=== PATIENT | male | born 1965 | race Caucasian/White ===

== ENCOUNTER 2024-10-18 23:45 | Emergency (ER) | payer BC, OTHER ==
[~2024-10-18] VITALS: Ht 167.6 cm; Wt 104.3 kg
[2024-10-18 23:46] VITALS: TEMP 98.7
[2024-10-19 00:43] LABS: APPEARANCE,URINE CLEAR (CLEAR); BILIRUBIN,URINE NEGATIVE (NEGATIVE); COLOR,URINE YELLOW (YELLOW); GLUCOSE, URINE (UA) NEGATIVE (NEGATIVE); KETONES,URINE NEGATIVE (NEGATIVE); LEUKOCYTE ESTERASE ,URINE NEGATIVE Leu/uL (NEGATIVE); NITRATE,URINE NEGATIVE (NEGATIVE); OCCULT BLOOD,URINE NEGATIVE (NEGATIVE); PH,URINE 5.5 (5.0-8.0); PROTEIN,URINE 20 mg/dL (NEGATIVE); UROBILINOGEN,URINE 0.2 mg/dL (0.2-1.0)
[2024-10-19 00:44] LABS: BASOPHILS # (AUTO) 0.01 K/uL (0.00-0.20); BASOPHILS % (AUTO) 0.2 % (0.0-5.0); EOSINOPHILS # (AUTO) 0.09 K/uL (0.00-0.70); EOSINOPHILS % (AUTO) 1.7 % (0.0-8.0); HEMATOCRIT 46.5 % (42-54); IMMATURE GRANULOCYTE ABSOLUTE 0.02 K/uL (0-1); LYMPHOCYTES % (AUTO) 18.8 % (21.0-51.0); MEAN CORPUSCULAR HEMOGLOBIN 34.2 pg (27.0-33.0); MEAN CORPUSCULAR HGB CONC 32.9 g/dL (32.0-36.0); MONOCYTES % (AUTO) 18.4 % (3.0-13.0); NEUTROPHILS # (AUTO) 3.3 K/uL (1.8-7.7); NEUTROPHILS % (AUTO) 60.5 % (40.0-77.0); PLATELET COUNT (AUTO) 128 K/uL (130-400); RED BLOOD CELL COUNT(AUTO) 4.47 MIL/uL (4.50-6.20); RED CELL DISTRIBUTION WIDTH 12.8 % (11.0-15.5); WHITE BLOOD COUNT (AUTO) 5.4 K/uL (4.8-10.8)
[2024-10-19 00:46] LABS: CREATININE 1.3 mg/dL (0.5-1.3); POTASSIUM 4.3 mmol/L (3.5-5.1)
[2024-10-19 00:48] LABS: ADD UA MICROSCOPIC YES
[2024-10-19 00:50] LABS: MUCUS,URINE RARE LPF (None Seen); RAPID GROUP A STREP negative (NEGATIVE); RBC,URINE 0-1 /HPF (0-1); SQUAMOUS EPITHELIAL CELL,UR RARE /HPF (0-2); WBC,URINE 0-1 /HPF (0-1)
[2024-10-19 00:55] LABS: SARS-CoV-2, RNA, NAAT NEGATIVE SARS CoV-2 (NEGATIVE)
[2024-10-19 01:00] LABS: INFLUENZA TYPE B Negative For Type B (NEGATIVE)
[2024-10-19 01:17] LABS: INFLUENZA TYPE A Positive For Type A (NEGATIVE)
--- NOTE | 2024-10-19 01:57 | ERN ---
ED Note History of Present Illness Stated Complaint: COUGH, CONGESTION, FEVER X 5 DAYS Chief Complaint: Cough Time Seen by MD: 23:59 Time Seen by Midlevel: 00:05 Dictation: 59-year-old male coming in complaining of one episode of low blood pressure, co ugh and congestion. Patient states this has been going on for five days was seen by PCP was placed on a Z-Elliott and prednisone daily. Patient states he has completed the Z-Elliott medication is still has a couple of the prednisone pending. Patient states he has been feeling better, states today is the 1st day that he does not have any fevers, and states his phlegm has gone from green to white. Denies having any chest pain, since it is comfort, short of breath. As per EMS in route his vital signs have been stable. Allergies: Uncoded Allergies: PCN (Allergy, 05/22/12) Home Meds Active Scripts Benzonatate (Tessalon Perles) 100 Mg Cap, 100 MG PO TID for cough for 7 Days, #21 CAP Prov:CUMMINGSJENNIFERESPERANZA WEBSITE PROGRAMMER 10/19/24 Oseltamivir Phosphate (Tamiflu) 75 Mg Cap, 75 MG PO BID for 5 Days, #10 CAP Prov:CUMMINGS,ESPERNAZA WEBSITE PROGRAMMER 10/19/24 Past Medical History Past Medical History: Asthma, MS Surgical History: CABG, Other Surgical History Other: L NEPHRECTOMY, MULTIPLE ABD HERNIA REPAIR Review of System Dictation Constitutional: Negative for fever,chills, and weight loss Eyes: Negative for injury, pain,redness, and discharge ENT: Negative for injury,pain or swelling Cardiovascular: Negative for chest pain, palpitations, and edema Respiratory: Negative for shortness of breath, positive for cough Abdomen/GI: Negative for abdominal pain, nausea, vomiting, diarrhea, and constipation Back: Negative for injury and pain : Negative for injury, bleeding and discharge MS/Extremity: Negative for injury and deformity Skin: Negative for rash, and discoloration Neuro: Negative for headache, weakness, numbness, tingling, and seizure Psych: Negative for suicide ideation, homicidal ideation, and hallucinations Review of Systems: was completed Initial Vital Sign VS Vital Signs Date Time Temp Pulse Resp B/P (MAP) Pulse Ox O2 Delivery O2 Flow Rate FiO2 10/18/24 23:46 98.8 89 20 119/78 95 Room Air* 0 21 Physical Exam Dictation General: awake, alert, NAD Head/Face: Normocephalic, atraumatic Eyes: PERRL, EOMI, vision at baseline ENT: oral cavity clear, TMs clear, no signs of infection Neck: Trachea midline, supple, no nuchal rigidity Cardiovascular: RRR, normal S1/S2, No MRGs, no JVD Respiratory: CTAB, no respiratory distress, No rales or wheezes Abdomen: Soft, non-tender, non-distended, normal bowel sounds, no guarding or rebound. Skin: Warm, dry, normal turgor, no rash MS/Extremity: Pulses equal, no cyanosis, neurovascular intact, FROM Neuro: COAx4, GCS 15, strength 5/5, CN 2-12 intact, normal cerebellar exam, normal gait, Psych: Normal behavior, mood, and affect normal Results (Laboratory/Radiology) Laboratory/Radiology Laboratory Tests Test 10/19/24 00:28 White Blood Count 5.4 K/uL (4.8-10.8) Red Blood Count 4.47 MIL/uL (4.50-6.20) L Hemoglobin 15.3 g/dL (14.0-18.0) Hematocrit 46.5 % (42-54) Mean Corpuscular Volume 104.0 fL (79-99) H Mean Corpuscular Hemoglobin 34.2 pg (27.0-33.0) H Mean Corpuscular Hemoglobin Concent 32.9 g/dL (32.0-36.0) Red Cell Distribution Width 12.8 % (11.0-15.5) Platelet Count 128 K/uL (130-400) L Mean Platelet Volume 10.2 fL (7.5-10.5) Immature Granulocyte % (Auto) 0.4 % (0-1) Neutrophils (%) (Auto) 60.5 % (40.0-77.0) Lymphocytes (%) (Auto) 18.8 % (21.0-51.0) L Monocytes (%) (Auto) 18.4 % (3.0-13.0) H Eosinophils (%) (Auto) 1.7 % (0.0-8.0) Basophils (%) (Auto) 0.2 % (0.0-5.0) Neutrophils # (Auto) 3.3 K/uL (1.8-7.7) Lymphocytes # (Auto) 1.0 K/uL (1.0-4.8) Monocytes # (Auto) 1.0 K/uL (0.1-1.0) Eosinophils # (Auto) 0.09 K/uL (0.00-0.70) Basophils # (Auto) 0.01 K/uL (0.00-0.20) Absolute Immature Granulocyte (auto 0.02 K/uL (0-1) Nucleated Red Blood Cells 0.0 % (0.0-0.19) White Cell Morphology Comment See comments Urine Color YELLOW (YELLOW) Urine Appearance CLEAR (CLEAR) Urine pH 5.5 (5.0-8.0) Urine Specific [place] 1.026 (1.001-1.031) Urine Protein 20 mg/dL (NEGATIVE) H Urine Glucose (UA) NEGATIVE mg/dL (NEGATIVE) Urine Ketones NEGATIVE mg/dL (NEGATIVE) Urine Occult Blood NEGATIVE (NEGATIVE) Urine Nitrate NEGATIVE (NEGATIVE) Urine Bilirubin NEGATIVE mg/dL (NEGATIVE) Urine Urobilinogen 0.2 mg/dL (0.2-1.0) Urine Leukocyte Esterase NEGATIVE Stephen/uL Urine RBC 0-1 /HPF (0-1) Urine WBC 0-1 /HPF (0-1) Urine Squamous Epithelial Cells RARE /HPF (0-2) Urine Bacteria None /HPF (None Seen) Sodium Level 137 mmol/L (136-145) Potassium Level 4.3 mmol/L (3.5-5.1) Chloride Level 102 mmol/L (101-111) Carbon Dioxide Level 32 mmol/L (21-32) Blood Urea Nitrogen 19 mg/dL (7-18) H Creatinine 1.3 mg/dL (0.5-1.3) Glomerular Filtration Rate Calc 64 mL/min (>90) Random Glucose 108 mg/dL (70-105) H Total Calcium 8.2 mg/dL (8.5-10.1) L Troponin I High Sensitivity 16 ng/L (4-75) Influenza Type A Antigen Positive For Type A Influenza Type B Antigen Negative For Type B SARS-CoV-2, RNA, NAAT NEGATIVE SARS CoV-2 Group A Streptococcus Rapid negative (NEGATIVE) Labs Reviewed?: Yes EKG Comment: Date:10/19/24 Time:0138 Ventricular rate: 50 WV interval:149 QRS duration:6 QT/QTc:455/414 EKG interpretation: Sinus rhythm, inferior infarct, old Reviewed by ED Attending no STEMI interpreted by ER MD ED Course ED Course Orders Procedure Category Date Status Time Cbc With Differential LAB 10/19/24 Complete 00:13 Basic Metabolic Panel LAB 10/19/24 Complete 00:13 Troponin I High LAB 10/19/24 Complete Sensitivity 00:13 12 Lead Ekg Tracing- EKG 10/19/24 Logged Technical 00:13 Covid Rna Naat LAB 10/19/24 Complete 00:13 Influenza Type A & B, LAB 10/19/24 Complete Rapid 00:13 Rapid (Group A Strep) LAB 10/19/24 Complete 00:13 Urinalysis Profile LAB 10/19/24 Complete 00:13 Chest 1vw RAD 10/19/24 Taken 00:13 Vital Signs Date Time Temp Pulse Resp B/P (MAP) Pulse Ox O2 Delivery O2 Flow Rate FiO2 10/19/24 01:05 55 18 115/58 96 Room Air* 0 21 10/18/24 23:46 98.8 89 20 119/78 95 Room Air 0 10/18/24 23:46 98.8 89 20 119/78 95 Room Air* 0 21 Medical Decision Making MDM MDM:59-year-old male coming in complaining of one episode of low blood pressure, cough and congestion. Patient states this has been going on for five days was seen by PCP was placed on a Z-Elliott and prednisone daily. Patient states he has completed the Z-Elliott medication is still has a couple of the prednisone pending. Patient states he has been feeling better, states today is the 1st day that he does not have any fevers, and states his phlegm has gone from green to white. Denies having any chest pain, since it is comfort, short of breath. As per EMS in route his vital signs have been stable.CBC shows no leukocytosis, no anemia, , mild thrombocythemia. Chemistry is unremarkable. UA shows no evidence of urinary tract infection. Urology positive for flu A. Chest x-ray shows no acute pulmonary pathology, interpreted by me. Patient's entire stay in the ER has a had stable vital signs, no hypotension, no fever, no tachycardia. Patient isn't tachypneic or hypoxic. Discussed findings with patient, educated that I will prescribe Tamiflu and he is to follow up with PCP in 1-2 days or return to the ER if symptoms worsen. Patient verbalized understanding, answered all questions. Differential diagnosis: Pneumonia, influenza, COVID Rationale: Tests considered and ordered secondary to shared decision making include: Previous outside records reviewed: Old ER visits. Risk of complication and/or morbidity or mortality of patient management: None Medications-Per medication reconciliation Need for hospitalization: Patient does not meet criteria for hospitalization. Need for emergency major/minor surgery: No There are no social concerns with this patient. Prescription drug management Prescriptions will include symptomatic care Patient's prior external medical records from other ER visits were reviewed by me as indicated. Prior testing and results from previous visits were reviewed. Prior tests were taken into account with medical decision making and resource utilization, independent historian/historians were used to obtain complete medical history. I independently interpreted the test that were performed, results were reviewed by me and considered findings on radiology if ordered. Medical management and examination interpretation discussions were had by me with other qualified healthcare professionals as indicated for the patient's care. DX & DISP Disposition: Discharge Departure Impression: Primary Impression: Influenza A Condition: Stable Scripts Benzonatate (Tessalon Perles) 100 Mg Cap 100 MG PO TID for cough for 7 Days, #21 CAP Prov: ESPERANZA CUMMINGS WEBSITE PROGRAMMER 10/19/24 Oseltamivir Phosphate (Tamiflu) 75 Mg Cap 75 MG PO BID for 5 Days, #10 CAP Prov: ESPERANZA CUMMINGS WEBSITE PROGRAMMER 10/19/24 Additional Instructions: Please follow up with your primary doctor in 1-2 days. Return to the emergency room if symptoms worsen. Finished the medications that were prescribed by your PCP. Referrals: SARTHAK ZARATE MD (PCP) Time of Disposition: 02:03 I have reviewed the case, and I agree with, Diagnosis and Plan ESPERANZA CUMMINGS NP Oct 19, 2024 01:57
[2024-10-19] MEDS ORDERED: BENZ-39 PO (02:03)
[2024-10-19] MEDS ORDERED: OSEL75 PO (02:03)
[2024-10-19 02:21] VITALS: BP 118/62; PULSE 56; RESP 18; O2SAT 96
--- NOTE | 2024-10-19 05:09 | EKG ---
[facility] Test Date: 2024-10-19 Test Time: 01:38:26 Pat Name: MARILIN PRATER Department: ED Room: Gender: M Sap Hana Architect: [id number] Requested By: ESPERANZA CUMMINGS Order Number: [id number] Reading MD: Haile Cabrera Measurements Intervals [place] Rate: 50 P: 48 HI: 149 QRS: 6 QRSD: 95 T: 64 QT: 455 QTc: 414 Interpretive Statements Sinus rhythm Inferior infarct, old No previous ECG available for comparison Electronically Signed On 10-20-2024 21:31:39 SPORTS MANAGER by Haile Cabrera Please click the below link to view image of tracing.
--- NOTE | 2024-10-19 08:42 | HMCIMG ---
CHEST 1VW REASON: cough COMPARISON: The FINDINGS: There is borderline cardiomegaly. There is no pulmonary vascular congestion. Lungs are clear. Mediastinum and bony thorax appear unremarkable. IMPRESSION: 1. Borderline heart size, no acute finding.
== END 2024-10-19 02:34 | disposition home or self-care (01) ==
LOC: EDH 23:45
DX: J10.1 Influenza due to other identified influenza virus with other respiratory manifestations (principal); J45.909 Unspecified asthma, uncomplicated; Z20.822 Contact with and (suspected) exposure to COVID-19; Z90.5 Acquired absence of kidney; Z95.1 Presence of aortocoronary bypass graft; Z98.890 Other specified postprocedural states
CPT/HCPCS: 36415; 71045; 80048; 81001; 84484; 85025; 87635; 87804; 87880; 93005; 99284